=== PATIENT | female | born 1955 ===

== ENCOUNTER 2019-10-09 00:59 | Emergency (ER) | payer OTHER ==
--- NOTE | 2019-10-09 01:35 | EDM.PDOC ---
ED HPI GENERAL MEDICAL PROBLEM - General Chief Complaint: Cardiovascular Problem Stated Complaint: CARDIOVASCULAR EPISODES Time Seen by Provider: 10/09/19 01:19 Source of Information: Reports: Patient, Family History Limitations: Reports: No Limitations - History of Present Illness INITIAL COMMENTS - FREE TEXT/NARRATIVE: The patient presents with her for a cardiac episode. The patient says over the past few days she had about 4 to 5 episodes where she gets very tired and then has to lay down and then she has movements of her legs. Her will be talking to her and she cannot responds. She then will be short of breath and cannot talk after. She did not wet herself and she did not bite her tongue. This has never happened before. She has no fever, chills, cough, congestion, runny nose, chest pain, abdominal pain, nausea or vomiting. She has a history of heart valve replacement and aneurysm repair in 2013 in [place]. 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 She sees Octavia Gonzalez here. She saw Octavia after one of the first episodes. Onset: Gradual Duration: Week(s): Severity: Moderate Improves with: Reports: None Worsens with: Reports: None Associated Symptoms: Denies: Chest Pain, Cough, Fever/Chills, Headaches, Nausea/Vomiting, Shortness of Breath - Related Data Allergies Allergy/AdvReac Type Severity Reaction Status Date / Time No Known Allergies Allergy Verified 10/09/19 01:12 Home Meds: Home Meds Montelukast Sodium 10 mg PO DAILY 08/30/19 [History] Warfarin Sodium 7.5 mg PO DAILY 08/30/19 [History] atorvaSTATin Calcium [Atorvastatin Calcium] 20 mg PO DAILY 08/30/19 [History] hydroCHLOROthiazide [Hydrochlorothiazide] 12.5 mg PO DAILY 08/30/19 [History] lisinopriL [Lisinopril] 10 mg PO DAILY 08/30/19 [History] rOPINIRole HCl [Ropinirole HCl] 4 mg PO BEDTIME 08/30/19 [History] Omeprazole 10 mg PO DAILY 10/09/19 [History] Past Medical History Cardiovascular History: Reports: Hypertension - Past Surgical History Cardiovascular Surgical History: Reports: Valve Replacement Other Cardiovascular Surgeries/Procedures: aortic valve replacement, artificial valve Social & Family History - Tobacco Use Smoking Status *Q: Never Smoker - Recreational Drug Use Recreational Drug Use: No ED ROS GENERAL - Review of Systems Review Of Systems: See Below Constitutional: Reports: No Symptoms HEENT: Reports: No Symptoms Respiratory: Reports: No Symptoms Cardiovascular: Reports: No Symptoms Endocrine: Reports: No Symptoms GI/Abdominal: Reports: No Symptoms : Reports: No Symptoms Musculoskeletal: Reports: No Symptoms Skin: Reports: No Symptoms Neurological: Reports: Other (Leg movements) ED EXAM, GENERAL - Physical Exam Exam: See Below Exam Limited By: No Limitations General Appearance: Alert, No Apparent Distress Ears: Normal External Exam Nose: Normal Inspection Head: Atraumatic, Normocephalic Neck: Normal Inspection Respiratory/Chest: No Respiratory Distress, Lungs Clear, Normal Breath Sounds Cardiovascular: Regular Rate, Rhythm, No Edema, No Murmur GI/Abdominal: Soft, Non-Tender, No Organomegaly, No Mass Extremities: Normal Inspection Neurological: Alert, Oriented, No Motor/Sensory Deficits EKG INTERPRETATION EKG Date: 10/09/19 Time: 01:11 Rhythm: NSR Rate (Beats/Min): 67 [place]: Normal P-Wave: Present QRS: LBBB ST-T: Normal QT: Normal Course - Vital Signs Last Recorded V/S: Last Vital Signs Temp 97.7 F 10/09/19 01:08 Pulse 74 10/09/19 01:08 Resp 20 10/09/19 01:08 BP 163/75 H 10/09/19 01:08 Pulse Ox 97 10/09/19 01:08 - Orders/Labs/Meds Orders: Active Orders 24 hr Category Date Time Status Cardiac Monitoring [RC] . DIRECTED Care 10/09/19 01:41 Active EKG 12 Lead [EKG Documentation Completion] [RC] URGENT Care 10/09/19 01:10 Active Peripheral IV Care [RC] . DIRECTED Care 10/09/19 01:41 Active Head wo Cont [CT] Stat Exams 10/09/19 01:41 Taken CORONAVIRUS COVID-19 RAPID [MOLEC] Stat Lab 10/09/19 02:36 Received Sodium Chloride 0.9% [Saline Flush] Med 10/09/19 01:41 Active 10 ml FLUSH ASDIRECTED PRN Peripheral IV Insertion Adult [OM.PC] Stat Oth 10/09/19 01:41 Ordered Medication Orders Sodium Chloride (Saline Flush) 10 ml FLUSH ASDIRECTED PRN PRN Reason: Keep Vein Open Last Admin: 10/09/19 01:44 Dose: 10 ml Documented by: JERRI Labs: Laboratory Tests 10/09/19 10/09/19 10/09/19 Range/Units 01:10 01:10 01:10 WBC 11.07 H (3.98-10.04) K/mm3 RBC 4.31 (3.98-5.22) M/mm3 Hgb 13.6 (11.2-15.7) gm/dl Hct 41.4 (34.1-44.9) % MCV 96.1 H (79.4-94.8) fl MCH 31.6 (25.6-32.2) pg MCHC 32.9 (32.2-35.5) g/dl RDW Std Deviation 45.5 (36.4-46.3) fL Plt Count 312 (182-369) K/mm3 MPV 9.6 (9.4-12.3) fl Neut % (Auto) 67.6 (34.0-71.1) % Lymph % (Auto) 23.3 (19.3-51.7) % Major % (Auto) 7.5 (4.7-12.5) % Eos % (Auto) 0.9 (0.7-5.8) Baso % (Auto) 0.4 (0.1-1.2) % Neut # (Auto) 7.49 H (1.56-6.13) K/mm3 Lymph # (Auto) 2.58 (1.18-3.74) K/mm3 Major # (Auto) 0.83 H (0.24-0.36) K/mm3 Eos # (Auto) 0.10 (0.04-0.36) K/mm3 Baso # (Auto) 0.04 (0.01-0.08) K/mm3 PT 29.8 H (9.7-12.0) SECONDS INR 2.84 Sodium 140 (136-145) mEq/L Potassium 4.0 (3.5-5.1) mEq/L Chloride 106 (98-107) mEq/L Carbon Dioxide 27 (21-32) mEq/L Anion Gap 11.0 (5-15) BUN 19 H (7-18) mg/dL Creatinine 0.9 (0.55-1.02) mg/dL Est Cr Clr Drug Dosing 48.28 mL/min Estimated GFR (MDRD) > 60 (>60) mL/min BUN/Creatinine Ratio 21.1 H (14-18) Glucose 158 H (80-115) mg/dL Calcium 8.7 (8.5-10.1) mg/dL Magnesium 2.0 (1.8-2.4) mg/dl Total Bilirubin 0.3 (0.2-1.0) mg/dL AST 19 (15-37) U/L ALT 38 (14-59) U/L Alkaline Phosphatase 53 (46-116) U/L Troponin I 0.031 (0.00-0.056) ng/mL Total Protein 6.7 (6.4-8.2) g/dl Albumin 3.7 (3.4-5.0) g/dl Globulin 3.0 gm/dL Albumin/Globulin Ratio 1.2 (1-2) Meds: Medications Generic Name Dose Route Start Last Admin Trade Name Freq PRN Reason Stop Dose Admin Sodium Chloride 10 ml 10/09/19 01:41 10/09/19 01:44 Saline Flush FLUSH 10 ml ASDIRECTED PRN Administration Keep Vein Open - Re-Assessments/Exams Free Text/Narrative Re-Assessment/Exam: 10/09/19 02:25 I ordered an IV saline lock, EKG, CT of her head and labs. Her EKG shows a LBBB with nothing acute. Her WBC was slightly elevated at 11.07. Her INR is therapeutic at 2.84. Her glucose is elevated at 158. Her troponin is negative. Her CT shows subdural CSF attenuation collections along the bilateral frontal lobes that measures up to 8mm in thickness that could represent subdural hygromas or chronic subdural hematomas. No significant midline shift. 10/09/19 02:[address] Churchill the neurologist salesperson sewing machines at [facility] in [place] and he felt she should come to the ER there. Departure - Departure Time of Disposition: 03:00 Disposition: DC/Tfer to Acute Hospital 02 Reason for Transfer *Q: Other Condition: Serious Clinical Impression: Subdural hematoma, Dyskinesia, H/O prosthetic heart valve Referrals: Octavia Gonzalez PA-C [Primary Care Provider] - Forms: ED Department Discharge Sepsis Event Note (ED) - Evaluation Sepsis Screening Result: No Definite Risk - Focused Exam Vital Signs: Vital Signs Temp Pulse Resp BP Pulse Ox 10/09/19 01:08 97.7 F 74 20 163/75 H 97 - My Orders Last 24 Hours: My Active Orders 10/09/19 01:10 EKG 12 Lead [EKG Documentation Completion] [RC] URGENT 10/09/19 01:41 Cardiac Monitoring [RC] . DIRECTED Peripheral IV Care [RC] . DIRECTED Head wo Cont [CT] Stat Sodium Chloride 0.9% [Saline Flush] 10 ml FLUSH ASDIRECTED PRN Peripheral IV Insertion Adult [OM.PC] Stat 10/09/19 02:36 CORONAVIRUS COVID-19 RAPID [MOLEC] Stat - Assessment/Plan Last 24 Hours: My Active Orders 10/09/19 01:10 EKG 12 Lead [EKG Documentation Completion] [RC] URGENT 10/09/19 01:41 Cardiac Monitoring [RC] . DIRECTED Peripheral IV Care [RC] . DIRECTED Head wo Cont [CT] Stat Sodium Chloride 0.9% [Saline Flush] 10 ml FLUSH ASDIRECTED PRN Peripheral IV Insertion Adult [OM.PC] Stat 10/09/19 02:36 CORONAVIRUS COVID-19 RAPID [MOLEC] Stat
[2019-10-09] MEDS ORDERED: Sodium Chloride 0.9% 10 ML Syringe FLUSH PRN (01:41)
--- NOTE | 2019-10-09 11:36 | CT ---
Head CT Technique: Multiple axial sections through the brain were obtained. Intravenous contrast was not utilized. Comparison: No prior intracranial imaging is available. Ventricles and basal cisterns appear within normal limits. Slightly prominent CSF spaces are noted over both frontal convexities. No evidence of intracranial hemorrhage. No midline shift or mass-effect is appreciated. Bone window settings were reviewed. No acute calvarial finding is seen. Visualized paranasal sinuses and visualized mastoid sinuses show nothing acute. Impression: 1. Slightly prominent CSF spaces overlying both frontal regions. Findings most likely represent asymmetric atrophy. Less likely etiology would be cystic hygromas. 2. Nothing acute is otherwise identified on noncontrast head CT study. Diagnostic code #2 This report was dictated in MDT I agree with preliminary report from Shavon, finalized on 10/09/19, 3:19 AM Central Daylight Time
== END 2019-10-09 03:30 ==
LOC: JD.ED 00:59
DX: I62.00 Nontraumatic subdural hemorrhage, unspecified (principal); I44.7 Left bundle-branch block, unspecified; G24.9 Dystonia, unspecified; Z95.2 Presence of prosthetic heart valve; I10 Essential (primary) hypertension; Z20.828 Contact with and (suspected) exposure to other viral communicable diseases; Z79.01 Long term (current) use of anticoagulants; Z79.899 Other long term (current) drug therapy
CPT/HCPCS: 36415; 70450; 70450-26; 80053; 83735; 84484; 85025; 85610; 93005; 93010; 99285; 99285-25; U0002

== ENCOUNTER 2020-03-13 06:04 | Day surgery (SDC) | payer OTHER ==
[~2020-03-13 06:04] MED LIST: Acetaminophen 325 MG Tab PO SCH; Lactated Ringers 1,000 ML IV SCH; Lidocaine 1%/Sod Bicarbonate in NS 8.4% 1 ML Syringe IDERM PRN; Pregabalin 25 MG Cap PO SCH; Sodium Chloride 0.9% 10 ML Syringe FLUSH PRN; oxyCODONE ER 10 MG TAB.ER PO SCH
[2020-03-13] MEDS ORDERED: Triamcinolone Acetonide 40 MG/ML 1 ML SDV ONE (06:47)
--- NOTE | 2020-03-13 06:48 | PCM.PREANE ---
Preanesthetic Assessment - Procedure Proposed Procedure: left total knee arthroplasty - Anesthesia/Transfusion/Family Hx Anesthesia History: Prior Anesthesia Without Reaction Family History of Anesthesia Reaction: No Transfusion History: No Prior Transfusion(s) - Review of Systems General: No Symptoms Pulmonary: No Symptoms Cardiovascular: No Symptoms Gastrointestinal: No Symptoms Neurological: No Symptoms Other: Reports: Easy Bleeding, Easy Bruising, Neck Pain - Physical Assessment NPO Status Date: 03/12/20 NPO Status Time: 00:00 Vital Signs: Last Vital Signs Temp 36.4 C 03/13/20 06:05 Pulse 69 03/13/20 06:05 Resp 16 03/13/20 06:05 BP 139/75 03/13/20 06:05 Pulse Ox 97 03/13/20 06:05 Height: 1.55 m Weight: 76.657 kg ASA Class: 3 Mental Status: Alert & Oriented x3 Airway Class: Mallampati = 3 Dentition: Reports: Normal Dentition Thyro-Mental Finger Breadths: 2 Mouth Opening Finger Breadths: 2 ROM/Head Extension: Limited/Partial Lungs: Clear to Auscultation, Normal Respiratory Effort Cardiovascular: Regular Rate, Regular Rhythm - Lab Values: Laboratory Last Values SARS-CoV-2 (PCR) Not detected (NOT DETECT) 03/09/20 10:30 MRSA (PCR) Negative 03/03/20 10:36 - Allergies Allergies/Adverse Reactions: Allergies Allergy/AdvReac Type Severity Reaction Status Date / Time No Known Allergies Allergy Verified 03/10/20 15:46 - Blood Blood Available: No Product(s) Available: None - Anesthesia Plan Pre-Op Medication Ordered: Beta Saige Beta Saige: Metoprolol Med Last Dose Date: 03/13/20 Med Last Dose Time: 04:30 - Acknowledgements Anesthesia Type Planned: Spinal Pt an Appropriate Candidate for the Planned Anesthesia: Yes Alternatives and Risks of Anesthesia Discussed w Pt/Guardian: Yes Pt/Guardian Understands and Agrees with Anesthesia Plan: Yes PreAnesthesia Questionnaire HEENT History: Reports: Allergic Rhinitis, Impaired Vision, Other (See Below) Other HEENT History: wears glasses, cerumen impaction Cardiovascular History: Reports: High Cholesterol, Hypertension Respiratory History: Reports: None Gastrointestinal History: Reports: GERD, Other (See Below) Other Gastrointestinal History: gastroparesis, barretts esophagus Genitourinary History: Reports: Other (See Below) Other Genitourinary History: hematuria, frequency [employer]PER[employer] History: Reports: None Musculoskeletal History: Reports: Other (See Below) Other Musculoskeletal History: knee pain, low back pain, hip flexor tendinitis, leg muscle spasm, hand pain Neurological History: Reports: Other (See Below) Other Neuro History: abnormal involuntary movement, altered mental status, degenerative disc disease, radiculopathy, cervical vertebral fusion Psychiatric History: Reports: None Endocrine/Metabolic History: Reports: None Hematologic History: Reports: None Immunologic History: Reports: None Oncologic (Cancer) History: Reports: None Dermatologic History: Reports: Other (See Below) Other Dermatologic History: seborrehic keratosis - Infectious Disease History Infectious Disease History: Reports: None - Past Surgical History Cardiovascular Surgical History: Reports: Valve Replacement Other Cardiovascular Surgeries/Procedures: aortic valve replacement, artificial valve Respiratory Surgical History: Reports: None GI Surgical History: Reports: Colonoscopy, EGD Female Surgical History: Reports: None Male Surgical History: Reports: None Endocrine Surgical History: Reports: None Neurological Surgical History: Reports: None Musculoskeletal Surgical History: Reports: Carpal Tunnel Oncologic Surgical History: Reports: None - SUBSTANCE USE Tobacco Use Status *Q: Never Tobacco User Tobacco Use Within Last Twelve Months: No Second Hand Smoke Exposure: Yes Days Per Week of Alcohol Use: 1 Number of Drinks Per Day: 0 Total Drinks Per Week: 0 Recreational Drug Use History: No - HOME MEDS Home Medications: Home Meds Montelukast Sodium 10 mg PO BEDTIME 08/30/19 [History] Warfarin Sodium 7.5 mg PO SUMOTUTHFRSA 08/30/19 [History] atorvaSTATin Calcium [Atorvastatin Calcium] 10 mg PO DAILY 08/30/19 [History] lisinopriL [Lisinopril] 10 mg PO DAILY 08/30/19 [History] Ascorbic Acid [Vitamin C] 250 mg PO DAILY 03/10/20 [History] Cholecalciferol (Vitamin D3) [Vitamin D3] 2,000 unit PO DAILY 03/10/20 [History] Esomeprazole [NexIUM] 20 mg PO DAILY 03/10/20 [History] Metoprolol Tartrate 25 mg PO BID 03/10/20 [History] Warfarin [Coumadin] 5 mg PO WE 03/10/20 [History] rOPINIRole [Requip] 2 mg PO BEDTIME 03/10/20 [History] Aspirin [Aspirin EC] 325 mg PO BID #20 tab 03/13/20 [Rx] Cyclobenzaprine [Flexeril] 10 mg PO BID PRN #20 tab 03/13/20 [Rx] oxyCODONE 5 - 10 mg PO Q4H PRN #40 tab 03/13/20 [Rx] - CURRENT (IN HOUSE) MEDS Current Meds: Current Medications Acetaminophen (Tylenol) 975 mg PO ONETIME SUNITHA Stop: 03/13/20 14:00 Last Admin: 03/13/20 06:11 Dose: 975 mg Documented by: Morphine Sulfate 8 mg/Epinephrine HCl 0.3 mg/Cefuroxime Sodium 750 mg/Ketorolac Tromethamine 30 mg/Sodium Chloride 7.9 ml 0 mg .XX ONETIME [facility] Stop: 03/13/20 13:00 Lactated Ringer's (Ringers, Lactated) 1,000 mls @ 125 mls/hr IV ASDIRECTED SUNITHA Stop: 03/13/20 23:00 Last Admin: 03/13/20 06:17 Dose: 125 mls/hr Documented by: Lidocaine/Sodium Bicarbonate (Buffered Lidocaine 1% In Ns 8.4%) 0.25 ml IDERM ONETIME PRN PRN Reason: Prior to IV Start Stop: 03/13/20 23:00 Last Admin: 03/13/20 06:16 Dose: 0.25 ml Documented by: Oxycodone HCl (Oxycontin) 10 mg PO ONETIME SUNITHA Stop: 03/13/20 14:00 Last Admin: 03/13/20 06:11 Dose: 10 mg Documented by: Pregabalin (Lyrica) 50 mg PO ONETIME SUNITHA Stop: 03/13/20 14:00 Last Admin: 03/13/20 06:10 Dose: 50 mg Documented by: Sodium Chloride (Saline Flush) 10 ml FLUSH ASDIRECTED PRN PRN Reason: Keep Vein Open Stop: 03/13/20 23:00 Discontinued Medications Bupivacaine HCl (Sensorcaine-Mpf 0.25%) Confirm Administered Dose 30 ml .ROUTE .STK-MED ONE Stop: 03/13/20 06:10 Tranexamic Acid (Cyklokapron) Confirm Administered Dose 1,000 mg .ROUTE .STK-MED ONE Stop: 03/13/20 06:10 Vancomycin HCl (Vancomycin) Confirm Administered Dose 1 gm .ROUTE .STK-[facility] ONE Stop: 03/13/20 06:10
[2020-03-13] MEDS ORDERED: Propofol 200 MG/20 ML SDV ONE ×2 (06:55→08:19)
[2020-03-13] MEDS ORDERED: fentaNYL 100 MCG/2 ML SDV ONE (06:55)
[2020-03-13] MEDS ORDERED: Midazolam 1 MG/ML 2 ML SDV ONE (06:55)
[2020-03-13] MEDS ORDERED: ceFAZolin 1 GM Vial ONE (06:57)
[2020-03-13] MEDS ORDERED: Lidocaine 1% 4 ML ONE (06:57)
[2020-03-13] MEDS: Bupivacaine 0.25% 10 ML SDV ONE ×4 (07:53→09:03)
[2020-03-13] MEDS: Morphine 8 MG, EPINEPHrine 0.3 MG, Cefuroxime 750 MG, Ketorolac 30 MG, Sodium Chloride ... SCH ×10 (07:53→08:36)
[2020-03-13] MEDS: Vancomycin 1 GM SDV ONE ×2 (07:53→08:45)
[2020-03-13] MEDS: Triamcinolone Acetonide 40 MG/ML 1 ML SDV ONE ×2 (07:54→09:03)
[2020-03-13] MEDS ORDERED: Lactated Ringers 1,000 ML ONE (07:59)
[2020-03-13] MEDS ORDERED: EPINEPHrine 1 MG/ML SDV ONE (09:03)
[2020-03-13] MEDS ORDERED: Ropivacaine 0.5% 5 MG/ML 30 ML SDV ONE (09:03)
--- NOTE | 2020-03-13 09:14 | PCM.POSTAN ---
POST ANESTHESIA ASSESSMENT - MENTAL STATUS Mental Status: Alert, Oriented - VITAL SIGNS Vital Signs: Last Vital Signs Temp 36.4 C 03/13/20 06:05 Pulse 69 03/13/20 06:05 Resp 16 03/13/20 06:05 BP 139/75 03/13/20 06:05 Pulse Ox 97 03/13/20 06:05 - RESPIRATORY Respiratory Status: Respiratory Rate WNL, Airway Patent, O2 Saturation Stable, Supplemental Oxygen - CARDIOVASCULAR CV Status: Pulse Rate WNL, Blood Pressure Stable - GASTROINTESTINAL GI Status: No Symptoms - PAIN Pain Score: 0 - POST OP HYDRATION Hydration Status: Adequate & Stable - OBSERVATIONS Free Text/Narrative:: no anesthesia complications noted
--- NOTE | 2020-03-13 09:35 | PCM.SN.2 ---
- Free Text/Narrative Note: Left selective femoral nerve block at the adductor canal for post-procedure pain control under US guidance requested by Dr. Quach. Time Out: 921 Start: 921 End: 925 Chart reviewed. Consent signed. Questions answered. Appropriate monitors applied. Time out performed. Left mid-shaft femur identified with ultrasound, scanning medially of femur, the femoral artery in the adductor canal visualized, and the femoral nerve located laterally to the artery. The skin was prepped lateral to the ultrasound probe with chlorahexadine times two. The 21ga 4 insulated block needle was inserted under direct ultrasound guidance into the adductor canal. 25mL of 0.5% ropivacaine with 1:200,000 epinephrine was injected circumferentially around the nerve with intermittent negative aspiration noted. Patient tolerated the procedure well. Sterile technique noted along with sterile gloves, mask, and sterile probe cover. See picture on progress note and vital signs on nurses notes. Block completed in PACU. Luke Ayon CRNA
--- NOTE | 2020-03-13 10:07 | CR ---
Left knee: AP and crosstable lateral views of the left knee were obtained. Comparison: Prior knee radiographic study of 09/07/19. Left knee prosthesis is noted. Components are aligned. Soft tissue air is noted from the surgical procedure. Underlying bony structures are intact. Impression: 1. Satisfactory radiographic appearance of recently placed left knee prosthesis. Diagnostic code #2
--- NOTE | 2020-03-13 11:48 | PCM48HPAN ---
Post Anesthesia Note - EVALUATION WITHIN 48HRS OF ANESTHETIC Vital Signs in Normal Range: Yes Patient Participated in Evaluation: Yes Respiratory Function Stable: Yes Airway Patent: Yes Cardiovascular Function Stable: Yes Hydration Status Stable: Yes Pain Control Satisfactory: Yes Nausea and Vomiting Control Satisfactory: Yes Mental Status Recovered: Yes Vital Signs: Last Vital Signs Temp 36.9 C 03/13/20 11:37 Pulse 69 03/13/20 11:37 Resp 14 03/13/20 11:37 BP 139/73 03/13/20 11:37 Pulse Ox 95 03/13/20 11:37 - COMMENTS/OBSERVATIONS Free Text/Narrative:: no anesthesia complications noted
[2020-03-13] MEDS ORDERED: oxyCODONE 5 MG Tab PO SCH (12:33)
--- NOTE | 2020-03-23 11:42 | PCM.OPNOTE ---
- General Post-Op/Procedure Note Date of Surgery/Procedure: 03/13/20 Operative Procedure(s): left total knee arthroplasty with right knee corticosteroid injection Pre Op Diagnosis: bilateral knee osteoarthrosis Post-Op Diagnosis: Same Anesthesia Technique: Local, MAC, Spinal Primary Surgeon: Umair Quach Anesthesia Provider: Johnson Tam [employer] Instructor: Melanie Villanueva [employer] Instructor: Eli Fitzgerald EBL in mLs: 400 Complications: None Condition: Good Free Text/Narrative:: 3 femur 2 tibia 11mm 29x9
--- NOTE | 2020-03-23 13:05 | OR ---
DATE OF OPERATION: 03/13/2020 SURGEON: Umair Quach MD OPERATION PERFORMED: Left total knee arthroplasty with right knee corticosteroid injection. PREOPERATIVE DIAGNOSIS: Bilateral knee osteoarthrosis. POSTOPERATIVE DIAGNOSIS: Bilateral knee osteoarthrosis. ANESTHESIA: Local MAC with spinal. ANESTHESIA PROVIDER: Johnson Tam CRNA ASSISTANTS: Melanie Villanueva PA-C and Eli Fitzgerald LPN ESTIMATED BLOOD LOSS: 400 mL. COMPLICATIONS: None. CONDITION: Stable. IMPLANTS: 1. [place] size 3 press-fit CR femur. 2. [place] size 2 press-fit tibial base plate. 3. Alla size 2, 11 mm CS polyethylene insert. 4. [place] size 29 x 9 mm press-fit asymmetric patella. DESCRIPTION OF PROCEDURE: The patient was identified in the preop holding area. Proper site was marked and identified by the surgeon. The patient was taken back to the operating theater, where after adequate anesthesia, the patient's left lower extremity had a nonsterile tourniquet applied and it was sterilely prepped and draped in the usual sterile fashion. OR time-out was performed. The patient received 2 g IV Ancef. At this time, the leg gray was placed, left lower extremity was then exsanguinated and tourniquet was insufflated to 250 mmHg. Standard medial parapatellar incision was made. A medial parapatellar arthrotomy was created. Deep fibers of the MCL were raised. Anterior fat pad was resected along with the ACL. Attention was turned to the patella. Patella measured 21, it was resected to a 13 for a 29 x 9 mm patella. Drill holes were then drilled and found to be in proper position. The knee was then bent up into flexion. Small stab incisions were made and two 4.0 pins were placed for the array for the [place] Carmine robot and the femur, and then 2 were placed in the tibia 4 fingerbreadths above the patella and below the tibial tubercle. The standard checkpoints were then done as well as checkpoints were placed into the bone. Once this was completed, 40 points were obtained with the Alla Carmine robot on both the femur and the tibia at this time. The plan was then placed and formulated for resection of the femur, it was found to be a size 3 femur and a size 2 tibia. At this time, the Alla Carmine robot was brought in. The posterior chamfer and distal femur cuts were then done at this time. After it was found to be adequate, the anterior, posterior, and anterior chamfer cuts were completed and found to be adequate. Attention was turned to the tibia at this time, and the tibial resection was completed and found to be adequate. The medial and lateral menisci were then resected as well as any posterior osteophytes. A size 2 tibia was found to have adequate coverage, it was placed in proper rotation. A 9 mm trial was placed. The patient had a minor amount of hyperextension, so 11 mm was placed. The patient had full range of motion. The patella was tracking centrally with no signs of liftoff and with good bony coverage. At this time, the tibia was stamped and drilled in the proper rotation. The size 2 tibial press-fit base plate was impacted in place. The size 3 press-fit CR femur was impacted in place, 11 mm CS polyethylene insert was impacted in place. The patient's knee was brought into full extension. The 29 x 9 mm press-fit patella was press-fit into place. The tourniquet was deflated. At this time, 1 L of Irrisept irrigation was irrigated through the knee along with 1 L pulse lavage irrigation with Ancef. The 4.0 pins as well as the rays were removed and the checkpoints were removed at this time. Topical tranexamic acid and vancomycin powder were applied in the wound, #2 barbed suture was used for closure of the medial parapatellar arthrotomy, 2-0 Vicryl was used subcutaneously, and Prineo was used for closure of the skin. The patient was placed in a sterile soft dressing and sent to PACU in stable condition. MMODAL /[id number]
== END 2020-03-13 13:15 | disposition home or self-care (01) ==
LOC: JD.SDS 06:04
PROVIDERS: ATTEND Orthopaedic Surgery
DX: M17.0 Bilateral primary osteoarthritis of knee (principal); G89.29 Other chronic pain; I10 Essential (primary) hypertension; E78.5 Hyperlipidemia, unspecified; K21.9 Gastro-esophageal reflux disease without esophagitis; K31.84 Gastroparesis; G89.18 Other acute postprocedural pain; Z20.822 Contact with and (suspected) exposure to COVID-19; Z01.812 Encounter for preprocedural laboratory examination; Z79.899 Other long term (current) drug therapy; Z98.890 Other specified postprocedural states; Z79.01 Long term (current) use of anticoagulants
CPT/HCPCS: 20610; 27447; 36415; 73560; 85610; 85730; 87635; 87641; 97110; 97116; 97161; A9270; C1713; C1776; J0171; J0690; J0697; J1885; J2250; J2270; J2370; J2704; J2795; J3010; J3301; J3370; J3490; J7120; 01402; 64450; J2001; U0002

== ENCOUNTER 2020-09-11 07:26 | Day surgery (SDC) | payer OTHER ==
--- NOTE | 2020-08-25 13:03 | PCM.SN.2 ---
#1 Interpretation EKG Date: 08/25/20 Time: 10:05 Rhythm: NSR Rate (Beats/Min): 79 [place]: LAD-Left [place] Deviation P-Wave: Present QRS: LBBB ST-T: Normal QT: Normal
[~2020-09-11 07:26] MED LIST changes: +Morphine 8 MG, EPINEPHrine 0.3 MG, Cefuroxime 750 MG, Ketorolac 30 MG, Sodium Chloride ... PRN
[2020-09-11] MEDS ORDERED: ceFAZolin 1 GM Vial ONE (07:32)
[2020-09-11] MEDS ORDERED: Propofol 200 MG/20 ML SDV ONE ×3 (07:33→10:24)
[2020-09-11] MEDS ORDERED: Lidocaine 1% 4 ML ONE (07:34)
[2020-09-11] MEDS ORDERED: Midazolam 1 MG/ML 2 ML SDV ONE (07:35)
[2020-09-11] MEDS ORDERED: fentaNYL 100 MCG/2 ML SDV ONE (07:36)
[2020-09-11] MEDS ORDERED: fentaNYL 250 MCG/5 ML SDV ONE (07:36)
[2020-09-11] MEDS ORDERED: Ropivacaine 0.5% 5 MG/ML 30 ML SDV ONE (07:46)
[2020-09-11] MEDS ORDERED: EPINEPHrine 1 MG/ML SDV ONE (07:46)
[2020-09-11] MEDS ORDERED: Vancomycin 1 GM SDV ONE (07:49)
--- NOTE | 2020-09-11 07:59 | PCM.PREANE ---
Preanesthetic Assessment - Anesthesia/Transfusion/Family Hx Anesthesia History: Prior Anesthesia Without Reaction Family History of Anesthesia Reaction: No Transfusion History: No Prior Transfusion(s) Intubation History: Unknown - Review of Systems General: No Symptoms Pulmonary: No Symptoms Cardiovascular: No Symptoms Gastrointestinal: No Symptoms Neurological: No Symptoms Other: Reports: Easy Bleeding, Easy Bruising - Physical Assessment NPO Status Date: 09/10/20 NPO Status Time: 19:00 ASA Class: 3 Mental Status: Alert & Oriented x3 Airway Class: Mallampati = 2 Dentition: Reports: Normal Dentition Thyro-Mental Finger Breadths: 3 Mouth Opening Finger Breadths: 3 ROM/Head Extension: Limited/Partial (cervical fusion x2 2007, 2009) Lungs: Clear to Auscultation, Normal Respiratory Effort Cardiovascular: Regular Rate, Regular Rhythm, Other (S/P aortic valve replacement 2013, click noted ) - Allergies Allergies/Adverse Reactions: Allergies Allergy/AdvReac Type Severity Reaction Status Date / Time No Known Allergies Allergy Verified 09/08/20 14:59 - Anesthesia Plan Beta Saige: Metoprolol Med Last Dose Date: 09/11/20 Med Last Dose Time: 07:20 - Acknowledgements Anesthesia Type Planned: Spinal, Regional Block Pt an Appropriate Candidate for the Planned Anesthesia: Yes Alternatives and Risks of Anesthesia Discussed w Pt/Guardian: Yes Pt/Guardian Understands and Agrees with Anesthesia Plan: Yes PreAnesthesia Questionnaire HEENT History: Reports: Allergic Rhinitis, Impaired Vision, Other (See Below) Other HEENT History: wears glasses, cerumen impaction Cardiovascular History: Reports: Heart Valve Replacement (Aortic valve 2013), H ypertension Respiratory History: Reports: None Gastrointestinal History: Reports: GERD, Other (See Below) Other Gastrointestinal History: gastroparesis, barretts esophagus Genitourinary History: Reports: Other (See Below) Other Genitourinary History: hematuria, frequency [employer] T[employer]IVER History: Reports: None Musculoskeletal History: Reports: Other (See Below) Other Musculoskeletal History: knee pain, low back pain, hip flexor tendinitis, leg muscle spasm, hand pain Neurological History: Reports: Other (See Below) Other Neuro History: abnormal involuntary movement, altered mental status, degenerative disc disease, radiculopathy, cervical vertebral fusion Psychiatric History: Reports: None Endocrine/Metabolic History: Reports: None Hematologic History: Reports: None Immunologic History: Reports: None Oncologic (Cancer) History: Reports: None Dermatologic History: Reports: Other (See Below) Other Dermatologic History: seborrehic keratosis - Infectious Disease History Infectious Disease History: Reports: None - Past Surgical History Cardiovascular Surgical History: Reports: Valve Replacement Other Cardiovascular Surgeries/Procedures: aortic valve replacement, artificial valve Respiratory Surgical History: Reports: None GI Surgical History: Reports: Colonoscopy, EGD Female Surgical History: Reports: None Male Surgical History: Reports: None Endocrine Surgical History: Reports: None Neurological Surgical History: Reports: C-Spine Musculoskeletal Surgical History: Reports: Carpal Tunnel Oncologic Surgical History: Reports: None - SUBSTANCE USE Tobacco Use Status *Q: Never Tobacco User Recreational Drug Use History: No - HOME MEDS Home Medications: Home Meds Montelukast Sodium 10 mg PO BEDTIME 08/30/19 [History] Warfarin Sodium 7.5 mg PO SUMOTUTHFRSA 08/30/19 [History] atorvaSTATin Calcium [Atorvastatin Calcium] 10 mg PO BEDTIME 08/30/19 [History] lisinopriL [Lisinopril] 10 mg PO DAILY 08/30/19 [History] Ascorbic Acid [Vitamin C] 250 mg PO DAILY 03/10/20 [History] Cholecalciferol (Vitamin D3) [Vitamin D3] 2,000 unit PO DAILY 03/10/20 [History] Esomeprazole [NexIUM] 20 mg PO DAILY 03/10/20 [History] Metoprolol Tartrate 25 mg PO BID 03/10/20 [History] Warfarin [Coumadin] 2.5 mg PO WE 03/10/20 [History] Amoxicillin 4 cap PO ASDIRECTED 09/08/20 [History] Ascorbic Acid [Vitamin C] 250 mg PO DAILY 09/08/20 [History] Aspirin [Aspirin EC] 325 mg PO BID #20 tab 09/08/20 [Rx] Orphenadrine Citrate [Orphenadrine Citrate ER] 100 mg PO BID PRN #20 tablet.er 09/08/20 [Rx] Ubidecarenone [Co Q-10] 1 cap PO DAILY 09/08/20 [History] oxyCODONE 5 - 10 mg PO Q4H PRN #40 tab 09/08/20 [Rx] rOPINIRole [Requip] 2 mg PO DAILY 09/08/20 [History] - CURRENT (IN HOUSE) MEDS Current Meds: Current Medications Acetaminophen (Acetaminophen 325 Mg Tab) 975 mg PO ONETIME SUNITHA Stop: 09/11/20 13:00 Morphine Sulfate 8 mg/Epinephrine HCl 0.3 mg/Cefuroxime Sodium 750 mg/Ketorolac Tromethamine 30 mg/Sodium Chloride 7.9 ml 0 mg .XX ASDIRECTED PRN PRN Reason: Pain Stop: 09/11/20 15:00 Lactated Ringer's (Ringers, Lactated) 1,000 mls @ 125 mls/hr IV ASDIRECTED SUNITHA Stop: 09/11/20 23:00 Lidocaine/Sodium Bicarbonate (Lidocaine 1%/Sod Bicarbonate In Ns 8.4% 1 Ml Syringe) 0.25 ml IDERM ONETIME PRN PRN Reason: Prior to IV Start Stop: 09/11/20 18:00 Oxycodone HCl (Oxycodone Er 10 Mg Tab.Er) 10 mg PO ONETIME SUNITHA Stop: 09/11/20 13:00 Pregabalin (Pregabalin 25 Mg Cap) 50 mg PO ONETIME SUNITHA Stop: 09/11/20 13:00 Sodium Chloride (Sodium Chloride 0.9% 10 Ml Syringe) 10 ml FLUSH ASDIRECTED PRN PRN Reason: Keep Vein Open Stop: 09/11/20 18:00 Discontinued Medications Cefazolin Sodium (Cefazolin 1 Gm Vial) Confirm Administered Dose 2 gm .ROUTE .STK-MED ONE Stop: 09/11/20 07:33 Epinephrine HCl (Epinephrine 1 Mg/Ml Sdv) Confirm Administered Dose 1 mg .ROUTE .STK-MED ONE Stop: 09/11/20 07:47 Fentanyl (Fentanyl 250 Mcg/5 Ml Sdv) Confirm Administered Dose 250 mcg .ROUTE .STK-MED ONE Stop: 09/11/20 07:37 Fentanyl (Fentanyl 100 Mcg/2 Ml Sdv) Confirm Administered Dose 100 mcg .ROUTE .STK-MED ONE Stop: 09/11/20 07:37 Lidocaine HCl (Xylocaine-Mpf 1%) Confirm Administered Dose 4 mls @ as directed .ROUTE .STK-MED ONE Stop: 09/11/20 07:35 Midazolam HCl (Midazolam 1 Mg/Ml 2 Ml Sdv) Confirm Administered Dose 2 mg .ROUTE .STK-MED ONE Stop: 09/11/20 07:36 Propofol (Propofol 200 Mg/20 Ml Sdv) Confirm Administered Dose 200 mg .ROUTE .STK-MED ONE Stop: 09/11/20 07:34 Ropivacaine (Ropivacaine 0.5% 5 Mg/Ml 30 Ml Sdv) Confirm Administered Dose 30 ml .ROUTE .STK-MED ONE Stop: 09/11/20 07:47 Tranexamic Acid (Tranexamic Acid 1,000 Mg/10 Ml Amp) Confirm Administered Dose 1,000 mg .ROUTE .STK-MED ONE Stop: 09/11/20 07:50 Vancomycin HCl (Vancomycin 1 Gm Sdv) Confirm Administered Dose 1 gm .ROUTE .STK- MED ONE Stop: 09/11/20 07:50
[2020-09-11] MEDS ORDERED: Lactated Ringers 1,000 ML ONE ×2 (09:20→10:23)
[2020-09-11] MEDS ORDERED: ePHEDrine 50 MG/ML SDV ONE (09:32)
[2020-09-11] MEDS ORDERED: Ondansetron 4 MG/2 ML SDV IVPUSH PRN (09:41)
[2020-09-11] MEDS ORDERED: diphenhydrAMINE 50 MG/ML SDV IVPUSH PRN (09:41)
[2020-09-11] MEDS ORDERED: fentaNYL 100 MCG/2 ML SDV IVPUSH PRN (09:41)
[2020-09-11] MEDS ORDERED: Lactated Ringers 0 ML ONE (10:23)
[2020-09-11] MEDS ORDERED: Ondansetron 4 MG/2 ML SDV ONE (10:40)
[2020-09-11] MEDS ORDERED: Ketorolac 30 MG/ML SDV ONE (10:40)
--- NOTE | 2020-09-11 10:53 | PCM.POSTAN ---
POST ANESTHESIA ASSESSMENT - MENTAL STATUS Mental Status: Alert, Oriented - RESPIRATORY Respiratory Status: Respiratory Rate WNL, Airway Patent, O2 Saturation Stable - CARDIOVASCULAR CV Status: Pulse Rate WNL, Blood Pressure Stable - GASTROINTESTINAL GI Status: No Symptoms - PAIN Pain Score: 0 - POST OP HYDRATION Hydration Status: Adequate & Stable
[2020-09-11] MEDS ORDERED: Orphenadrine 100 MG Tab.ER PO PRN (11:31)
[2020-09-11] MEDS ORDERED: oxyCODONE 5 MG Tab PO PRN (11:31)
--- NOTE | 2020-09-11 11:37 | PCM.SN.2 ---
- Free Text/Narrative Note: Right selective femoral nerve block at the adductor canal for post-procedure pain control under US guidance requested by Dr. Quach. Date: 09/11/20 Time Out:1110 Start:1110 End: 1118 Chart reviewed. Consent signed. Questions answered. Appropriate monitors applied. Time out performed. Right mid-shaft femur identified with ultrasound, scanning medially of femur, the femoral artery in the adductor canal visualized, and the femoral nerve located laterally to the artery. The skin was prepped lateral to the ultrasound probe with chlorahexadine times two. The 21ga 4 insulated block needle was inserted under direct ultrasound guidance into the adductor canal. 25mL of 0.5% ropivacaine with 1:200,000 epinephrine was injected circumferentially around the nerve with intermittent negative aspiration noted. Patient tolerated the procedure well. Sterile technique noted along with sterile gloves, mask, and sterile probe cover. See picture on progress note and vital signs on nurses notes. Block completed in PACU. Wili Martínez CRNA
--- NOTE | 2020-09-11 11:38 | PCM48HPAN ---
Post Anesthesia Note - EVALUATION WITHIN 48HRS OF ANESTHETIC Vital Signs in Normal Range: Yes Patient Participated in Evaluation: Yes Respiratory Function Stable: Yes Airway Patent: Yes Cardiovascular Function Stable: Yes Hydration Status Stable: Yes Pain Control Satisfactory: Yes Nausea and Vomiting Control Satisfactory: Yes Mental Status Recovered: Yes Vital Signs: Last Vital Signs Temp 36.6 C 09/11/20 11:30 Pulse 73 09/11/20 11:30 Resp 15 09/11/20 11:30 BP 118/49 L 09/11/20 11:30 Pulse Ox 90 L 09/11/20 11:30
--- NOTE | 2020-09-11 13:20 | CR ---
Right knee: AP and crosstable lateral views of the right knee were obtained. Comparison: Prior right knee CT study of 08/25/20. Knee prosthesis is noted. Patellar prosthesis is also seen. Components appear aligned. Underlying bony structures show no other acute abnormality. Small amount of soft tissue air is seen. Impression: 1. Satisfactory postoperative radiographic appearance of recently placed right knee prostheses. Diagnostic code #2
--- NOTE | 2020-09-27 16:48 | PCM.OPNOTE ---
- General Post-Op/Procedure Note Date of Surgery/Procedure: 09/11/20 Operative Procedure(s): right total knee arthroplasty with [employer] qi robotics Pre Op Diagnosis: right knee osteoarthrosis Post-Op Diagnosis: Same Anesthesia Technique: Local, MAC, Spinal Primary Surgeon: Umair Quach Anesthesia Provider: Dory Perez Managed Care Nurse: Melanie Villanueva Managed Care Nurse: Eli Fitzgerald EBL in mLs: 600 Complications: None Condition: Good Free Text/Narrative:: 3 femur 2 tibia 9mm 29x9
--- NOTE | 2020-09-27 17:51 | OR ---
DATE OF OPERATION: 09/11/2020 SURGEON: Umair Quach MD OPERATION PERFORMED: Right total knee arthroplasty with [employer] robotics. PREOPERATIVE DIAGNOSIS: Right knee osteoarthrosis. POSTOPERATIVE DIAGNOSIS: Right knee osteoarthrosis. ANESTHESIA: Local MAC with spinal. ANESTHESIA PROVIDER: Dory Perez CRNA. ASSISTANTS: Melanie Villanueva PA-C, and Eli Fitzgerald LPN. ESTIMATED BLOOD LOSS: 600 mL. COMPLICATIONS: None. CONDITION: Stable. IMPLANTS: 1. Lyons size 3 press-fit CR femur. 2. Alla size 2 press-fit tibial baseplate. 3. Lyons size 2, 9 mm CS polyethylene insert. 4. Alla size 29 x 9 mm press-fit patella. DESCRIPTION OF PROCEDURE: The patient was identified in the preoperative holding area. Proper site was marked and identified by the surgeon. The patient was taken back to the operating theater where after adequate anesthesia, the patient's right lower extremity had a nonsterile tourniquet applied and it was sterilely prepped and draped in the usual sterile fashion. OR time-out was performed. The patient received 2 g IV Ancef. Right lower extremity was then sterilely prepped and draped in the usual sterile fashion. OR time-out was performed. Right lower extremity was exsanguinated. Tourniquet was insufflated to 250 mmHg. Standard anterior incision was made and a medial parapatellar arthrotomy was created. Deep fibers of the MCL were raised and anterior fat pad was resected. Attention was turned to the patella. Patella measured a 21, resected to a 13 for a 29 x 9 mm patella. Drill holes were then drilled and found to have adequate bone stock. Attention was turned to the femur. Two 4.0 Schanz pins were placed intra-incisionally and the femur for the All[employer] Carmine robotic arrays adequate right tube roll placed in the tibia for the Lyons Carmine robotic array. Checkpoints were placed on the femur and the tibia as well. Hip center of rotation was obtained. Medial and lateral malleoli were marked as well as the tibial and femoral check point. The 40 points were then obtained off the femur and the tibia for the [employer] robotic array plan. At this time, the patient's knee was brought into full extension. Varus valgus stresses were applied and then it was brought into 90 degrees flexion. The patient had 19 mm gaps, that was reduced to 18. Straight saw blade was then brought in with [email or web address] robotic arm. Tibial cut, anterior femoral cut, anterior chamfer cut, and posterior femoral cuts were completed. Followed was end-stage distal femoral applied as well as posterior capsule was completed. All bony fragments were removed. Medial and lateral meniscus were resected. The posterior osteophytes were removed. Size 2 trial tibia was placed. Size 3 trial femur was placed and a 9 mm trial spacer. The patient had full extension and flexion. There was no varus-valgus instability. Patella was tracking centrally. At this time, femoral drill holes were drilled. Tibia was stamped and drilled in proper rotation. The size 2 tibia was impacted into place. Size 3 femur was impacted into place and size 3, 9 mm CS polyethylene insert was impacted into place. The patient's knee was brought into full extension and the patella was press-fit into place. Tourniquet was deflated. Bleeders were cauterized. 1 L pulse lavage irrigation with Ancef was irrigated through the knee along with 400 mL Irrisept irrigation. Periarticular injection was undertaken and topical tranexamic acid and vancomycin powder were placed. #2 barbed suture was used for closure of the medial parapatellar arthrotomy, 2-0 Vicryl and Stratafix were used for subcutaneous closure. Prineo was used for skin closure. The patient had a sterile soft dressing applied and was sent to the PACU in stable condition. SHARON /[id number]
== END 2020-09-11 13:13 | disposition home or self-care (01) ==
LOC: JD.SDS 07:26
PROVIDERS: ATTEND Orthopaedic Surgery
DX: M17.11 Unilateral primary osteoarthritis, right knee (principal); M25.761 Osteophyte, right knee; I10 Essential (primary) hypertension; E78.5 Hyperlipidemia, unspecified; R73.03 Prediabetes; Z79.01 Long term (current) use of anticoagulants; Z79.82 Long term (current) use of aspirin; Z79.899 Other long term (current) drug therapy; Z95.2 Presence of prosthetic heart valve
CPT/HCPCS: 27447; 36415; 73560; 85610; 97116; 97161; A9270; C1713; C1776; J0171; J0690; J0697; J1885; J2250; J2270; J2405; J2704; J2795; J3010; J3370; J7120; 01402; 64450; 76942